=== PATIENT | female | born 1990 | race Caucasian/White ===

== ENCOUNTER 2023-05-01 09:07 | Emergency (ER) | payer MEDICAID, SELFPAY ==
[2023-05-01 09:08] VITALS: BP 156/109; PULSE 102; RESP 20; TEMP 36.6; O2SAT 100; BMI 4077.4
--- NOTE | 2023-05-01 09:41 | XR_ITS ---
PROCEDURE INFORMATION: Exam: XR Right Shoulder Exam date and time: 05/01/2023 9:44 AM Age: 33 years old Clinical indication: Pain; Shoulder; Right; Additional info: Injury and pain 8 wks ago TECHNIQUE: Imaging protocol: Radiologic exam of the right shoulder. Views: 2 or more views. COMPARISON: No relevant prior studies available. FINDINGS: Bones/joints: No acute fracture or malalignment. Joint spaces are maintained. Remote right 6th rib fracture. Soft tissues: Normal. IMPRESSION: No acute fracture or malalignment.
--- NOTE | 2023-05-01 09:41 | XR_ITS ---
PROCEDURE INFORMATION: Exam: XR Right Scapula Exam date and time: 05/01/2023 9:45 AM Age: 33 years old Clinical indication: Pain; Other: Scapula; Additional info: Pain S/P injury TECHNIQUE: Imaging protocol: Radiologic exam of the right scapula. Complete exam. COMPARISON: CR XR SHOULDER RT MIN 2V 05/01/2023 9:44 AM FINDINGS: Bones/joints: No acute fracture or malalignment. Soft tissues: Normal. IMPRESSION: No acute findings.
--- NOTE | 2023-05-01 09:44 | HMH.EDGENADL ---
Discharge Plan Disposition Patient Disposition: Home, Self-Care Prescriptions Prescriptions: New ibuprofen 800 mg tablet 800 mg PO TID PRN (Reason: pain) 7 Days Qty: 20 0RF cyclobenzaprine 5 mg tablet 5 mg PO TID PRN (Reason: muscle spasm) 5 Days Qty: 15 0RF Referrals Follow up/Referrals: Sotero Ruelas DO [Staff Physician] - See instructions (to discuss outpatient MRI and physical therapy ) Harsha Lockhart DO [Staff Physician] - See instructions Provider,Referral, [Primary Care Provider] - See instructions Activity Restrictions/Add. Instructions Additional Instructions/Restrictions: Please follow-up with Dr. Harsha Lockhart as soon as possible to establish primary care. I have also given you referral to Dr. Ruelas you can follow-up with either Dr. Lockhart or Dr. Ruelas to arrange an outpatient MRI. Clinical Impressions Clinical Impression: Right shoulder strain, Strain of trapezius muscle Discharge ED Provider: Rashaun Angulo General Adult HPI General Chief complaint: Extremity Injury, Upper Stated complaint: WC 04/10, right shoulder pain Time Seen by Provider: 05/01/23 09:31 Mode of Arrival: Ambulatory Source of Information: Patient Limitations: No Limitations Description of Symptoms (Recalled from ER Triage Doc. by RN): pt states she her hurt R shoulder 03/11 at work lifting a bed, states she was seen and all xrays were negative, states she has been in pain since then, explains it as a constant, sharp, stabbing pain down into her scapula, states it's worse when she coughs, turns, or takes a deep breath, tylenol or motrin isn't helping taking any of the pain away, denies any other injuries since this one incident History of Present Illness HPI narrative: Patient is a 33-year-old female presenting today with right shoulder pain after an injury that happened 8 weeks ago. 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 Since then its been worse with any type of movement also she had a cough recently and it hurts in her shoulder as well. She denies any shortness of breath fevers or chills etc. To worse with movement and touch. Related Data Previous Rx's Medication Instructions Recorded cyclobenzaprine 5 mg tablet 5 mg PO TID PRN muscle spasm 5 05/01/23 days #15 tabs ibuprofen 800 mg tablet 800 mg PO TID PRN pain 7 days #20 05/01/23 tabs Allergies Allergy/AdvReac Type Severity Reaction Status Date / Time egg Allergy Verified 05/01/23 09:23 [facility] [place] Disclaimer: The information contained in this section may have been updated after the patient was seen, as this information can be updated by other users. Social History Smoking Status: Current every day smoker alcohol intake: never current occupational status: other Travel in the last 8 weeks: None ROS Obtained: Yes All systems reviewed & no additional complaints except as documented Physical Exam General General appearance: alert Respiratory Respiratory exam: Present normal lung sounds bilaterally; Absent respiratory distress, wheezes or stridor Cardiovascular Cardiovascular exam: Present regular rate; Absent tachycardia Abdominal Exam Abdominal exam: Present soft; Absent distention or tenderness Back Exam Back 1 view image: 1. ttp Neurological Exam Neurological exam: Present alert and oriented X3 Medical Decision Making Guzman Inquiry Pt receiving controlled substance: No Vital Signs: 05/01/23 09:08 05/01/23 10:01 05/01/23 10:15 Temperature 97.9 F Temperature Source Oral Pulse Rate 87 83 Pulse Rate [Left Radial] 102 H Respiratory Rate 20 18 Blood Pressure 172/95 H 137/91 H Blood Pressure [Right Arm] 156/109 H Blood Pressure Mean 106 Blood Pressure Mean [Right Arm] 124 Blood Pressure Source [Right Arm] Automatic Cuff Blood Pressure Position [Right Arm] Sitting 02 Sat by Pulse Oxime
--- NOTE | 2023-05-01 09:51 | XR_ITS ---
PROCEDURE INFORMATION: Exam: XR Chest Exam date and time: 05/01/2023 9:47 AM Age: 33 years old Clinical indication: Cough; Additional info: Cough right shoulder pain TECHNIQUE: Imaging protocol: Radiologic exam of the chest. Views: 2 views. COMPARISON: CR Scapula R 05/01/2023 9:45 AM FINDINGS: Lungs: Unremarkable. No consolidation. Pleural spaces: Unremarkable. No pleural effusion. No pneumothorax. Heart/Mediastinum: Unremarkable. No cardiomegaly. Bones/joints: Remote right 6th rib fracture. IMPRESSION: No acute cardiopulmonary abnormality.
[2023-05-01 10:01] VITALS: BP 172/95; PULSE 87; O2SAT 100
[2023-05-01 10:15] VITALS: BP 137/91; PULSE 83; RESP 18; O2SAT 99
[2023-05-01 10:30] VITALS: BP 134/90; PULSE 80; RESP 16; O2SAT 100
[2023-05-01 10:45] VITALS: BP 134/90; PULSE 74; RESP 16; TEMP 36.7; O2SAT 98
== END 2023-05-01 10:47 | disposition home or self-care (01) ==
PROVIDERS: Emergency Provider Student in an Organized Health Care Education/Training Program
DX: S46.811A Strain of other muscles, fascia and tendons at shoulder and upper arm level, right arm, initial encounter; F17.210 Nicotine dependence, cigarettes, uncomplicated; X50.0XXA Overexertion from strenuous movement or load, initial encounter
CPT/HCPCS: 71046; 73010; 73030; 99284

== ENCOUNTER 2023-05-27 04:30 | Emergency (ER) | payer MEDICAID, SELFPAY ==
[2023-05-27 04:32] VITALS: BP 184/100; PULSE 77; RESP 20; TEMP 36.6; O2SAT 99; BMI 26.4
--- NOTE | 2023-05-27 04:43 | CT_ITS ---
PROCEDURE INFORMATION: Exam: CT Head Without Contrast Exam date and time: 05/27/2023 5:03 AM Age: 33 years old Clinical indication: Pain; Headache; Additional info: Severe sudden onset headache 0300 TECHNIQUE: Imaging protocol: Computed tomography of the head without contrast. Radiation optimization: All CT scans at this facility use at least one of these dose optimization techniques: automated exposure control; mA and/or kV adjustment per patient size (includes targeted exams where dose is matched to clinical indication); or iterative reconstruction. REPORTING DATA: Count of CT and Cardiac NM exams in prior 12 months: This patient has received 0 known CTs and 0 known cardiac nuclear medicine studies in the 12 months prior to the current study. COMPARISON: No relevant prior studies available. FINDINGS: Brain: Normal. No hemorrhage. Unremarkable white matter. No mass effect. Cerebral ventricles: No ventriculomegaly. Paranasal sinuses: Mucoperiosteal thickening of the right maxillary and ethmoidal sinuses. Mastoid air cells: Visualized mastoid air cells are well aerated. Bones/joints: Unremarkable. No acute fracture. Soft tissues: Unremarkable. IMPRESSION: 1. No intracranial process noted. 2. Right maxillary mucoperiosteal thickening.
--- NOTE | 2023-05-27 04:48 | HMH.EDGENADL ---
Discharge Plan Disposition Patient Disposition: Home, Self-Care Condition: Good Prescriptions Prescriptions: No Action ibuprofen 800 mg tablet 800 mg PO TID PRN (Reason: pain) 7 Days Qty: 20 0RF cyclobenzaprine 5 mg tablet 5 mg PO TID PRN (Reason: muscle spasm) 5 Days Qty: 15 0RF Referrals Follow up/Referrals: Provider,Referral, [Primary Care Provider] - See instructions Activity Restrictions/Add. Instructions Additional Instructions/Restrictions: You were evaluated in the emergency department today. Please follow-up with your primary care provider. Return to the emergency department for new or worsening symptoms. Clinical Impressions Clinical Impression: Migraine Instructions Patient Instructions: DI for Migraine, DI for Headache Discharge ED Provider: Natasha Chiang General Adult HPI General Chief complaint: Headache Stated complaint: Migraine with vomiting Time Seen by Provider: 05/27/23 04:43 Mode of Arrival: Ambulatory Source of Information: Patient Limitations: No Limitations Description of Symptoms (Recalled from ER Triage Doc. by RN): Patient reports migraine headache on the right side of head radiating into her neck that started approximately 0300 this morning. Patient reports no injury, was awake when the headache started suddenly. Denies vision changes or weakness. Reporty laying flat makes the pain worse. Rates current pain 9/10. History of Present Illness HPI narrative: This patient is a 33-year-old female with a history of migraines presenting to the emergency department for evaluation with concern for headache. She states that she had sudden onset of migraine around 3:00 this morning on the right side of her head radiating down into her neck. She states that it feels worse than prior migraines that she has had, and is worse with lying down. Her pain is a 9 out of 10. She notes photophobia and phonophobia, but denies any vision changes, numbness, tingling, weakness, or other concerns. No recent trauma noted. Related Data Previous Rx's Medication Instructions Recorded cyclobenzaprine 5 mg tablet 5 mg PO TID PRN muscle spasm 5 05/01/23 days #15 tabs ibuprofen 800 mg tablet 800 mg PO TID PRN pain 7 days #20 05/01/23 tabs Allergies Allergy/AdvReac Type Severity Reaction Status Date / Time egg Allergy Verified 05/01/23 09:23 [facility] Disclaimer: The information contained in this section may have been updated after the patient was seen, as this information can be updated by other users. Social History Smoking Status: Current every day smoker alcohol intake: never current occupational status: other Travel in the last 8 weeks: None ROS Obtained: Yes All systems reviewed & no additional complaints except as documented Physical Exam General General appearance: alert and in no apparent distress Head Head exam: atraumatic and normocephalic Eye Eye exam: Present normal appearance, PERRL and EOMI ENT ENT exam: Present normal exam, normal oropharynx, mucous membranes moist and normal external ear exam Neck Neck exam: Present normal inspection, full ROM and trachea midline; Absent tenderness Chest Chest inspection: Present normal inspection and symmetric chest wall rise; Absent tenderness Respiratory Respiratory exam: Present normal lung sounds bilaterally; Absent respiratory distress, wheezes, stridor or accessory muscle use Cardiovascular Cardiovascular exam: Present regular rate and normal rhythm Abdominal Exam Abdominal exam: Present soft; Absent distention, tenderness or guarding Extremities Exam Extremities exam: Present normal inspection, full ROM and normal capillary refill; Absent tenderness or edema Back Exam Back exam: Present normal inspection and full ROM; Absent tenderness Neurological Exam Neurological exam: Present alert, oriented X3, CN II-XII intact and normal gait; Absent motor sensory d
[2023-05-27 06:45] VITALS: BP 150/95; PULSE 71; RESP 17; TEMP 36.6; O2SAT 100
== END 2023-05-27 06:47 | disposition home or self-care (01) ==
PROVIDERS: Emergency Provider Emergency Medicine
DX: G43.909 Migraine, unspecified, not intractable, without status migrainosus (principal); R11.2 Nausea with vomiting, unspecified; F17.210 Nicotine dependence, cigarettes, uncomplicated
CPT/HCPCS: 70450; 96361; 96374; 96375; 99285; J0131